=== PATIENT | female | born 1945 | race Caucasian/White ===

== ENCOUNTER 2017-06-11 16:33 | Emergency (ER) | payer MEDICARE, OTHER ==
[2017-06-11 19:16] VITALS: BP 128/77
[2017-06-11] MEDS ORDERED: oxyCODONE/Acetamin 5/325 MG* TAB PO ONE (19:17)
--- NOTE | 2017-06-11 20:11 | RAD ---
Indication: Shortness of breath, chest pain, RIGHT side rib pain on inspiration. Comparison: No relevant prior exams available on the [facility] PACS for comparison. Technique: Dual energy PA chest and two-view RIGHT rib series. Lateral skin marker noted indicating the site of clinical concern. Report: Nondisplaced fracture of the RIGHT fifth rib laterally. No additional RIGHT rib fractures evident. Negative for pleural effusion or pneumothorax. Clear lungs. Negative for cardiomegaly. Unremarkable central pulmonary vasculature. Mildly tortuous descending thoracic aorta. IMPRESSION: Nondisplaced RIGHT fifth rib fracture without associated pneumothorax.
--- NOTE | 2017-06-11 21:11 | ED ---
Magno Bishop Rebecca, scribed for Adam Rai MD on 06/11/17 at 1916 . Adult Trauma - HPI Summary HPI Summary: Pt is a 72 y/o F who presents to ED co R sided rib pain s/p mechanical fall. Last night at approximately 1500 she was trying to get into bed in a dark room and she believes to be closer to the bed than she was. When she tried to climb into bed, she was too far away and fell. Negative head trauma or LOC. Rib pain is currently moderate, ranked 6/10 and at its worst is 8/10. Took Ibuprofen at home for the pain which slightly improved pain. Sx aggravated by deep breaths, coughing, sneezing and movement. Denies any other pain including neck, back, abdominal, clavicular and hip pain. Denies SOB, vomiting, hematuria. Is not on blood thinners. - History of Current Complaint Chief Complaint: EDGeneral Stated Complaint: FALL/RT SIDE PAIN Hx Obtained From: Patient Mechanism of Injury: Fall Loss of Consciousness: no loss of consciousness Onset/Duration: Started Days Ago - Last night, Still Present Current Severity: Moderate Pain Intensity: 6 Pain Scale Used: 0-10 Numeric Location: Other - R rib pain Aggravating Factor(s): Movement, Deep Breaths, Cough, Other - Sneezing Alleviating Factor(s): OTC Meds - Ibuprofen Associated Signs & Symptoms: Positive: Negative. Negative: SOB, Hematuria, Abdominal Pain, Loss of Consciousness - Allergy/Home Medications Allergies/Adverse Reactions: Allergies Allergy/AdvReac Type Severity Reaction Status Date / Time No Known Allergies Allergy Verified 06/11/17 19:36 PMH/Surg Hx/FS Hx/Imm Hx Endocrine/Hematology History: Denies: Hx Anticoagulant Therapy, Hx Diabetes Cardiovascular History: Reports: Hx Hypercholesterolemia, Hx Hypertension Respiratory History: Denies: Hx Asthma, Hx Chronic Obstructive Pulmonary Disease (COPD) - Cancer History Hx Chemotherapy: No Hx Radiation Therapy: No Infectious Disease History: Denies: Traveled Outside the [place] in Last 30 Days - Family History Known Family History: Positive: Cardiac Disease, Respiratory Disease - CHF - Social History Occupation: Retired Lives: With Family Smoking Status (MU): Former Smoker Review of Systems Negative: Shortness Of Breath Negative: Abdominal Pain, Vomiting Negative: hematuria Positive: Other - R rib pain; NEGATIVE: neck, back, clavicular and hip pain All Other Systems Reviewed And Are Negative: Yes Physical Exam - Summary Physical Exam Summary: The patient is well-nourished in mild pain distress. The skin is warm and dry and skin color reflects adequate perfusion. HEENT: The head is normocephalic and atraumatic. The pupils are equal and reactive. The conjunctivae are clear and without drainage. Nares are patent and without drainage. Mouth reveals moist mucous membranes and the throat is without erythema and exudate. The external ears are intact. Neck is supple with full range of motion and non-tender. Ther eis no reproducible pain over the spins processes. Respiratory: Chest is non-tender. Lungs are clear to auscultation and breath sounds are symmetrical and equal. Cardiovascular: Hear is regular rate and rhythm. There is no murmur or rub auscultated. Pulses are symmetrical and equal. Abdomen: The abdomen is soft and non-tender. There are normal bowel sounds heard in all four quadrants and there is no organomegaly palpated. Musculoskeletal: There is no back pain noted. There is no tenderness over the thoracic or cervical spines. No CVA tenderness. No tenderness over the clavicles. No tenderness over the sternum. Marked tenderness on the anterior, inferior lateral ribs on the R. There is no crepitus, no deformity. Extremities are non-tender with full range of motion. There is good capillary refill. There is no calf tenderness elicited. Mild edema. She has strong pulses distally. Neurological: Patient is alert and oriented to person, place and time. The patient has symmetrical motor strength in all four extremities. Psychiatric: The patient has an appropriate affect and does not exhibit any anxiety or depression. Triage Information Reviewed: Yes Vital Signs On Initial Exam: Initial Vitals Temp Pulse Resp BP Pulse Ox 98.5 F 74 18 122/72 94 06/11/17 16:35 06/11/17 16:35 06/11/17 16:35 06/11/17 16:35 06/11/17 16:35 Vital Signs Reviewed: Yes Diagnostics - Vital Signs Vital Signs Temp Pulse Resp BP Pulse Ox 06/11/17 16:35 98.5 F 74 18 122/72 94 - Laboratory Lab Statement: Any lab studies that have been ordered have been reviewed, and results considered in the medical decision making process. - Radiology CXR with Ribs Xray Interpretation: Positive (See Comments) - Nondisplaced RIGHT fifth rib fracture without associated pneumothorax. ED physician reviewed radiology report and agrees. Radiology Interpretation Completed By: Radiologist Re-Evaluation - Re-Evaluation First Eval Re-Evaluation Time: 20:14 Comment: Discussed XR results with the pt. Adult Trauma Course/Dx - Course Assessment/Plan: Pt is a 72 y/o F who presents to ED co R sided rib pain s/p mechanical fall. Last night at approximately 1500 she was trying to get into bed in a dark room and she believes to be closer to the bed than she was. When she tried to climb into bed, she was too far away and fell. Negative head trauma or LOC. Rib pain is currently moderate, ranked 6/10 and at its worst is 8 /10. Took Ibuprofen at home for the pain which slightly improved pain. Sx aggravated by deep breaths, coughing, sneezing and movement. Denies any other pain including neck, back, abdominal, clavicular and hip pain. Denies SOB, vomiting, hematuria. Is not on blood thinners. CXR reveals Nondisplaced RIGHT fifth rib fracture without associated pneumothorax. In the ED course, pt was given percocet 5/325. Pt will be D/C to home with Dx of rib fracture, Rx for percocet 5/325 and a follow up with her PCP. She understands and agrees. Elevated BP noted and advised to f/u with PCP. - Diagnoses Differential Diagnosis/HQI/PQRI: Positive: Fracture, Other - pneumothorax Provider Diagnoses: Rib fracture Discharge - Discharge Plan Condition: Stable Disposition: HOME Prescriptions: oxyCODONE/Acetamin 5/325 MG* [Percocet 5/325 TAB*] 1 tab PO Q6H PRN #20 tab MDD 4 PRN Reason: Pain Patient Education Materials: Rib Fracture (ED) Referrals: Vernon Mendez MD [Primary Care Provider] - 3 Days The documentation as recorded by the Magno bales Rebecca accurately reflects the service I personally performed and the decisions made by me, Adam Rai MD.
== END 2017-06-11 20:26 | disposition home or self-care (01) ==
LOC: ED 16:33
DX: S22.31XA Fracture of one rib, right side, initial encounter for closed fracture (principal); W19.XXXA Unspecified fall, initial encounter; Y93.9 Activity, unspecified; Y92.9 Unspecified place or not applicable; Z87.891 Personal history of nicotine dependence
CPT/HCPCS: 99282; A9270-GY

== ENCOUNTER 2017-08-19 06:21 | Day surgery (SDC) | payer MEDICARE, OTHER ==
[~2017-08-19 06:21] MED LIST: Acetaminophen TAB* 325 MG PO PRN; Buffered Lidocaine 0.9% SYRIN* 5 ML/SYR SYRINGE INTRADERM ONE
[2017-08-19] MEDS ORDERED: fentaNYL* 50 MCG/ML 2 ML VIAL (100 MCG VIAL) ONE (07:27)
[2017-08-19] MEDS ORDERED: Midazolam* 1 MG/ML 5 ML VIAL (5 MG) ONE (07:27)
[2017-08-19 08:07] VITALS: BP 141/75
--- NOTE | 2017-08-19 11:02 | OP ---
OPERATIVE NOTE: DATE OF OPERATION: DATE OF : 41 SURGEON: Jayme Barrios M.D. PREOPERATIVE DIAGNOSIS: Cataract, right eye. POSTOPERATIVE DIAGNOSIS: Cataract, right eye. OPERATIVE PROCEDURE: Phacoemulsification, right eye with IOL. PROCEDURE: The patient was brought to the operating room after being given 1/2% Alcaine with epineph rine drops in the preoperative area. The eye was prepped and draped in the usual sterile fashion. S terile drape and eyelid speculum were placed. Again, topical 1/2% Alcaine with epinephrine was given . A paracentesis incision was made at the 9 o'clock position with the No.75 blade. Clear cornea inc ision 2.2 x 2.2-mm was created at the 12 o'clock position starting at the anterior limbus using the 2 .2-mm keratome. The anterior chamber was irrigated with 0.4 mL of 1% non-preservative intracameral l idocaine and filled with DisCoVisc. A capsulorrhexis was completed using the cystotome and the Utrat a forceps. Hydrodissection was performed with balanced salt solution. The lens nucleus was removed w ith the Phacoemulsification handpiece without incident. Cortex was removed with the irrigation-aspir ation handpiece. The capsular bag was re-inflated using DisCoVisc and an [id number] implant was inser karen with the shooter. The irrigation-aspiration handpiece was used to remove all residual DisCoVisc. The eye was refilled with balanced salt solution and the wound checked and found to be watertight. Topical Maxitrol drops were given. [id number]/[facility] #: [id number]
[2017-08-19] MEDS ORDERED: Lidocaine 2% EPI 1:200000 MPF* 20 ML VIAL ONE (12:51)
[2017-08-19] MEDS ORDERED: Cyclopentolate 1% OPTH.SOL* 2 ML BTL ONE (12:51)
[2017-08-19] MEDS ORDERED: Phenylephrine 2.5% OPTH.SOL* 2 ML BTL ONE (12:51)
[2017-08-19] MEDS ORDERED: Povidone Iodine 5% OPTH* 30 ML BTL ONE (12:51)
[2017-08-19] MEDS ORDERED: Neomycin/Polymy/Dex OPTH.SUSP* MAXITROL 0.1% 5 ML ONE (12:51)
[2017-08-19] MEDS ORDERED: acetaZOLAMIDE TAB* 250 MG ONE (12:51)
[2017-08-19] MEDS ORDERED: Lidocaine 1% MPF* 2 ML VIAL ONE (12:51)
[2017-08-19] MEDS ORDERED: Buffered Lidocaine 0.9% SYRIN* 5 ML/SYR SYRINGE ONE (12:52)
[2017-08-19] MEDS ORDERED: Proparacaine 0.5% OPHTH.SOL* 15 ML BTL ONE (12:52)
[2017-08-19] MEDS ORDERED: Ketorolac 0.5% OPHTH (NF) 0.5 % 5 ML BTL ONE (12:52)
== END 2017-08-19 08:08 | disposition home or self-care (01) ==
LOC: OREAST 06:21
PROVIDERS: ATTEND Specialist
DX: H25.11 Age-related nuclear cataract, right eye (principal); H53.461 Homonymous bilateral field defects, right side; Z87.891 Personal history of nicotine dependence; E78.2 Mixed hyperlipidemia; I10 Essential (primary) hypertension; M17.9 Osteoarthritis of knee, unspecified
CPT/HCPCS: A9270-GY; J2250; J3010; V2632

== ENCOUNTER → 2017-09-02 06:22 | Day surgery (SDC) | payer MEDICARE, OTHER ==
[~2017-09-02 06:22] MED LIST changes: -Acetaminophen TAB* 325 MG PO PRN; +Buffered Lidocaine 0.9% SYRIN* 5 ML/SYR SYRINGE ONE; +Cyclopentolate 1% OPTH.SOL* 2 ML BTL ONE; +Ketorolac 0.5% OPHTH (NF) 0.5 % 5 ML BTL ONE; +Lidocaine 1% MPF* 2 ML VIAL ONE; +Lidocaine 2% EPI 1:200000 MPF* 20 ML VIAL ONE; +Midazolam* 1 MG/ML 2 ML VIAL (2 MG) ONE; +Neomycin/Polymy/Dex OPTH.SUSP* MAXITROL 0.1% 5 ML ONE; +Phenylephrine 2.5% OPTH.SOL* 2 ML BTL ONE; +Povidone Iodine 5% OPTH* 30 ML BTL ONE; +Proparacaine 0.5% OPHTH.SOL* 15 ML BTL ONE; +acetaZOLAMIDE TAB* 250 MG ONE
[2017-09-02 08:04] VITALS: BP 144/63
--- NOTE | 2017-09-02 12:16 | OP ---
OPERATIVE NOTE: DATE OF OPERATION: 09/02/17 DATE OF : 41 SURGEON: Jayme Barrios MD PREOPERATIVE DIAGNOSIS: Cataract, left eye. POSTOPERATIVE DIAGNOSIS: Cataract, left eye. OPERATIVE PROCEDURE: Phacoemulsification, left eye with IOL. PROCEDURE: The patient was brought to the operating room after being given 1/2% Alcaine with epineph rine drops in the preoperative area. The eye was prepped and draped in the usual sterile fashion. S terile drape and eyelid speculum were placed. Again, topical 1/2% Alcaine with epinephrine was given . A paracentesis incision was made at the 3 o'clock position with the No.75 blade. Clear cornea inc ision 2.2 x 2.2-mm was created at the 6 o'clock position starting at the anterior limbus using the 2. 2-mm keratome. The anterior chamber was irrigated with 0.4 mL of 1% non-preservative intracameral li docaine and filled with DisCoVisc. A capsulorrhexis was completed using the cystotome and the Utrata forceps. Hydrodissection was performed with balanced salt solution. The lens nucleus was removed wi th the Phacoemulsification handpiece without incident. Cortex was removed with the irrigation-aspira tion handpiece. The capsular bag was re-inflated using DisCoVisc and an [id number] implant was insert ed with the shooter. The irrigation-aspiration handpiece was used to remove all residual DisCoVisc. The eye was refilled with balanced salt solution and the wound checked and found to be watertight. Topical Maxitrol drops were given. [id number]/[facility] #: [id number]
== END | disposition home or self-care (01) ==
LOC: OREAST 06:22
PROVIDERS: ATTEND Specialist
DX: H26.9 Unspecified cataract (principal); I10 Essential (primary) hypertension; E78.00 Pure hypercholesterolemia, unspecified; Z87.891 Personal history of nicotine dependence
CPT/HCPCS: A9270-GY; J2250; V2632

== ENCOUNTER 2021-09-23 09:28 | Inpatient (IN) ==
[2021-09-23 13:15] LABS: Urine Appearance Clear; Urine Bilirubin Negative (Negative); Urine Blood 1+ (Negative); Urine Color Straw; Urine Glucose Negative (Negative); Urine Ketones Negative (Negative); Urine Nitrite Negative (Negative); Urine Protein Negative (Negative); Urine Specific Gravity 1.006 (1.002-1.030); Urine Urobilinogen Negative (Negative)
[2021-09-23 13:26] LABS: Urine Amorphous Crystals Present (Absent); Urine Bacteria 1+ (Absent); Urine Red Blood Cell Trace(0-2/hpf) (Absent); Urine Squamous Epithelial Cell Present (Absent); Urine White Blood Cell Trace(0-5/hpf) (Absent)
[2021-09-23] MEDS ORDERED: Senna TAB 8.6 mg TAB PO PRN (16:33)
[2021-09-23] MEDS ORDERED: Calcium Carb (TUMS) 500 mg CHEW TAB PO PRN (16:41)
[2021-09-24] MEDS: Aspirin EC 81 mg TAB.EC (enteric coated) PO SCH (08:29)
[2021-09-25 06:32] LABS: Hematocrit 23 % (35-47); Hemoglobin 7.6 g/dL (12.0-16.0); Mean Corpuscular HGB Conc 33 g/dL (31-36); Mean Corpuscular Hemoglobin 30 pg (27-31); Mean Corpuscular Volume 91 fL (80-97); Mean Platelet Volume 7.4 fL (7.4-10.4); Platelet Count 284 10^3/uL (150-450); Red Cell Distribution Width 15 % (10-15); White Blood Count 12.2 10^3/uL (3.5-10.8)
[2021-09-25 06:35] LABS: ABS Basophils 0.1 10^3/ul (0-0.2); ABS Eosinophils 0.3 10^3/ul (0-0.6); ABS Lymphocytes 1.5 10^3/ul (1.0-4.8); ABS Monocytes 0.4 10^3/ul (0-0.8); ABS Neutrophils 9.9 10^3/ul (1.5-7.7); Eosinophil % 2.2 %; Lymphocyte % 12.7 %; Nucleated Red Blood Cells % 0.1
[2021-09-25 06:59] LABS: Albumin 2.4 g/dL (3.2-5.2); Albumin/Globulin Ratio 0.8 (1-3); Calcium 8.1 mg/dL (8.6-10.3); Globulin 2.9 g/dL (2-4); Potassium 3.4 mmol/L (3.5-5.0); Total Bilirubin 0.3 mg/dL (0.2-1.0); Total Protein 5.3 g/dL (6.4-8.9); eGFR CKD-EPI 91.8 (>60)
[2021-09-25] MEDS: Aspirin EC 81 mg TAB.EC (enteric coated) PO SCH (08:46)
[2021-09-25 10:40] LABS: Magnesium 1.2 mg/dL (1.9-2.7)
[2021-09-26] MEDS: Potassium Chlor 20 meq TAB.ER PO SCH (08:40)
[2021-09-26] MEDS: Aspirin EC 81 mg TAB.EC (enteric coated) PO SCH (08:40)
[2021-09-27 07:07] LABS: Hematocrit 23 % (35-47); Hemoglobin 7.8 g/dL (12.0-16.0); Mean Corpuscular HGB Conc 34 g/dL (31-36); Mean Corpuscular Hemoglobin 31 pg (27-31); Mean Corpuscular Volume 92 fL (80-97); Mean Platelet Volume 7.2 fL (7.4-10.4); Platelet Count 301 10^3/uL (150-450); Red Blood Count 2.54 10^6 /uL (3.70-4.87); Red Cell Distribution Width 15 % (10-15); White Blood Count 10.2 10^3/uL (3.5-10.8)
[2021-09-27 08:10] LABS: ABS Basophils 0.1 10^3/ul (0-0.2); ABS Eosinophils 0.3 10^3/ul (0-0.6); ABS Lymphocytes 1.6 10^3/ul (1.0-4.8); ABS Monocytes 0.4 10^3/ul (0-0.8); ABS Neutrophils 7.7 10^3/ul (1.5-7.7); Eosinophil % 3.3 %; Lymphocyte % 15.7 %; Polychromasia 2+
[2021-09-27] MEDS: Potassium Chlor 20 meq TAB.ER PO SCH (08:40)
[2021-09-27] MEDS: Aspirin EC 81 mg TAB.EC (enteric coated) PO SCH (08:41)
[2021-09-27 11:03] LABS: Calcium 8.4 mg/dL (8.6-10.3); Magnesium 1.2 mg/dL (1.9-2.7); Potassium 4.2 mmol/L (3.5-5.0); eGFR CKD-EPI 78.9 (>60)
[2021-09-27] MEDS: Magnesium Chloride EC 64 mgTAB PO SCH (13:02)
[2021-09-28 06:18] LABS: Calcium 8.6 mg/dL (8.6-10.3); Magnesium 1.4 mg/dL (1.9-2.7); Potassium 3.9 mmol/L (3.5-5.0); eGFR CKD-EPI 88.5 (>60)
[2021-09-28] MEDS: Magnesium Chloride EC 64 mgTAB PO SCH (08:06)
[2021-09-28] MEDS: Aspirin EC 81 mg TAB.EC (enteric coated) PO SCH (08:06)
[2021-09-29 08:33] LABS: Magnesium 1.4 mg/dL (1.9-2.7); Potassium 3.9 mmol/L (3.5-5.0); eGFR CKD-EPI 76.5 (>60)
[2021-09-29] MEDS: Magnesium Chloride EC 64 mgTAB PO SCH (09:32)
[2021-09-29] MEDS: Aspirin EC 81 mg TAB.EC (enteric coated) PO SCH (09:32)
[2021-09-29] MEDS ORDERED: ANALGESIC TOPICAL PRN (09:35)
[2021-09-30 06:44] LABS: Calcium 8.9 mg/dL (8.6-10.3); Magnesium 1.5 mg/dL (1.9-2.7); Potassium 3.9 mmol/L (3.5-5.0); eGFR CKD-EPI 78.9 (>60)
[2021-09-30] MEDS: Aspirin EC 81 mg TAB.EC (enteric coated) PO SCH (09:24)
[2021-09-30] MEDS: Magnesium Chloride EC 64 mgTAB PO SCH (09:24)
[2021-10-01] MEDS: Aspirin EC 81 mg TAB.EC (enteric coated) PO SCH (10:05)
[2021-10-01] MEDS: Magnesium Chloride EC 64 mgTAB PO SCH (10:05)
[2021-10-02 07:00] LABS: ABS Basophils 0.1 10^3/ul (0-0.2); ABS Eosinophils 0.3 10^3/ul (0-0.6); ABS Lymphocytes 1.2 10^3/ul (1.0-4.8); ABS Monocytes 0.5 10^3/ul (0-0.8); ABS Neutrophils 6.4 10^3/ul (1.5-7.7); Eosinophil % 4.1 %; Hematocrit 23 % (35-47); Hemoglobin 7.8 g/dL (12.0-16.0); Lymphocyte % 14.1 %; Mean Corpuscular HGB Conc 34 g/dL (31-36); Mean Corpuscular Hemoglobin 30 pg (27-31); Mean Corpuscular Volume 90 fL (80-97); Mean Platelet Volume 6.7 fL (7.4-10.4); Nucleated Red Blood Cells % 0.1; Platelet Count 296 10^3/uL (150-450); Red Blood Count 2.56 10^6 /uL (3.70-4.87); Red Cell Distribution Width 16 % (10-15); White Blood Count 8.5 10^3/uL (3.5-10.8)
[2021-10-02 07:10] LABS: Albumin 2.8 g/dL (3.2-5.2); Albumin/Globulin Ratio 0.9 (1-3); Calcium 9.2 mg/dL (8.6-10.3); Globulin 3.2 g/dL (2-4); Magnesium 1.5 mg/dL (1.9-2.7); Potassium 3.9 mmol/L (3.5-5.0); Total Bilirubin 0.3 mg/dL (0.2-1.0); eGFR CKD-EPI 76.5 (>60)
[2021-10-02] MEDS: Magnesium Chloride EC 64 mgTAB PO SCH (09:20)
[2021-10-02] MEDS: Aspirin EC 81 mg TAB.EC (enteric coated) PO SCH (09:21)
[2021-10-03] MEDS: Magnesium Chloride EC 64 mgTAB PO SCH (08:57)
[2021-10-03] MEDS: Aspirin EC 81 mg TAB.EC (enteric coated) PO SCH (08:57)
[2021-10-04] MEDS: Magnesium Chloride EC 64 mgTAB PO SCH (10:08)
[2021-10-04] MEDS: Aspirin EC 81 mg TAB.EC (enteric coated) PO SCH (10:08)
[2021-10-05] MEDS: Aspirin EC 81 mg TAB.EC (enteric coated) PO SCH (09:07)
[2021-10-05] MEDS: Magnesium Chloride EC 64 mgTAB PO SCH (09:08)
[2021-10-06] MEDS: Aspirin EC 81 mg TAB.EC (enteric coated) PO SCH (08:39)
[2021-10-06] MEDS: Magnesium Chloride EC 64 mgTAB PO SCH (08:40)
[2021-10-07] MEDS: Aspirin EC 81 mg TAB.EC (enteric coated) PO SCH (09:04)
[2021-10-07] MEDS: Magnesium Chloride EC 64 mgTAB PO SCH (09:04)
[2021-10-08] MEDS: Aspirin EC 81 mg TAB.EC (enteric coated) PO SCH (09:50)
[2021-10-08] MEDS: Magnesium Chloride EC 64 mgTAB PO SCH (09:53)
[2021-10-09 06:24] LABS: ABS Basophils 0.1 10^3/ul (0-0.2); ABS Eosinophils 0.2 10^3/ul (0-0.6); ABS Lymphocytes 1.4 10^3/ul (1.0-4.8); ABS Monocytes 0.4 10^3/ul (0-0.8); ABS Neutrophils 6.4 10^3/ul (1.5-7.7); Eosinophil % 2.3 %; Hematocrit 24 % (35-47); Hemoglobin 8.1 g/dL (12.0-16.0); Mean Corpuscular HGB Conc 33 g/dL (31-36); Mean Corpuscular Hemoglobin 30 pg (27-31); Mean Corpuscular Volume 90 fL (80-97); Mean Platelet Volume 6.8 fL (7.4-10.4); Nucleated Red Blood Cells % 0.1; Platelet Count 425 10^3/uL (150-450); Red Cell Distribution Width 16 % (10-15); White Blood Count 8.5 10^3/uL (3.5-10.8)
[2021-10-09 06:57] LABS: Albumin 3.1 g/dL (3.2-5.2); Albumin/Globulin Ratio 0.9 (1-3); Calcium 9.3 mg/dL (8.6-10.3); Globulin 3.3 g/dL (2-4); Magnesium 1.5 mg/dL (1.9-2.7); Potassium 4.5 mmol/L (3.5-5.0); Total Bilirubin 0.3 mg/dL (0.2-1.0); Total Protein 6.4 g/dL (6.4-8.9); eGFR CKD-EPI 85.5 (>60)
[2021-10-09] MEDS: Magnesium Chloride EC 64 mgTAB PO SCH (07:42)
[2021-10-09] MEDS: Aspirin EC 81 mg TAB.EC (enteric coated) PO SCH (07:42)
[2021-10-10] MEDS: Aspirin EC 81 mg TAB.EC (enteric coated) PO SCH (10:02)
[2021-10-10] MEDS: Magnesium Chloride EC 64 mgTAB PO SCH (10:04)
[2021-10-11] MEDS: Aspirin EC 81 mg TAB.EC (enteric coated) PO SCH (09:40)
[2021-10-11] MEDS: Magnesium Chloride EC 64 mgTAB PO SCH (09:40)
[2021-10-12] MEDS: Magnesium Chloride EC 64 mgTAB PO SCH (09:21)
[2021-10-12] MEDS: Aspirin EC 81 mg TAB.EC (enteric coated) PO SCH (09:21)
[2021-10-13] MEDS: Aspirin EC 81 mg TAB.EC (enteric coated) PO SCH (08:51)
[2021-10-13] MEDS: Magnesium Chloride EC 64 mgTAB PO SCH (08:51)
[2021-10-14] MEDS: Aspirin EC 81 mg TAB.EC (enteric coated) PO SCH (08:23)
[2021-10-14] MEDS: Magnesium Chloride EC 64 mgTAB PO SCH (08:23)
[2021-10-15] MEDS: Aspirin EC 81 mg TAB.EC (enteric coated) PO SCH (10:11)
[2021-10-15] MEDS: Magnesium Chloride EC 64 mgTAB PO SCH (10:11)
[2021-10-16 06:41] LABS: ABS Basophils 0.1 10^3/ul (0-0.2); ABS Eosinophils 0.2 10^3/ul (0-0.6); ABS Lymphocytes 1.3 10^3/ul (1.0-4.8); ABS Monocytes 0.5 10^3/ul (0-0.8); ABS Neutrophils 7.7 10^3/ul (1.5-7.7); Eosinophil % 2.1 %; Hematocrit 27 % (35-47); Hemoglobin 9.1 g/dL (12.0-16.0); Lymphocyte % 13.7 %; Mean Corpuscular HGB Conc 34 g/dL (31-36); Mean Corpuscular Hemoglobin 30 pg (27-31); Mean Corpuscular Volume 89 fL (80-97); Mean Platelet Volume 7.1 fL (7.4-10.4); Platelet Count 451 10^3/uL (150-450); Red Blood Count 3.05 10^6 /uL (3.70-4.87); Red Cell Distribution Width 16 % (10-15); White Blood Count 9.8 10^3/uL (3.5-10.8)
[2021-10-16 07:07] LABS: Albumin 3.3 g/dL (3.2-5.2); Calcium 9.3 mg/dL (8.6-10.3); Globulin 3.3 g/dL (2-4); Magnesium 1.6 mg/dL (1.9-2.7); Potassium 3.9 mmol/L (3.5-5.0); Total Bilirubin 0.4 mg/dL (0.2-1.0); Total Protein 6.6 g/dL (6.4-8.9)
[2021-10-16] MEDS: Magnesium Chloride EC 64 mgTAB PO SCH (08:02)
[2021-10-16] MEDS: Aspirin EC 81 mg TAB.EC (enteric coated) PO SCH (08:02)
[2021-10-17] MEDS: Aspirin EC 81 mg TAB.EC (enteric coated) PO SCH (09:56)
[2021-10-17] MEDS: Magnesium Chloride EC 64 mgTAB PO SCH (09:56)
[2021-10-18] MEDS: Aspirin EC 81 mg TAB.EC (enteric coated) PO SCH (09:47)
[2021-10-18] MEDS: Magnesium Chloride EC 64 mgTAB PO SCH (09:47)
[2021-10-19] MEDS: Aspirin EC 81 mg TAB.EC (enteric coated) PO SCH (09:03)
[2021-10-19] MEDS: Magnesium Chloride EC 64 mgTAB PO SCH (09:04)
[2021-10-20] MEDS: Aspirin EC 81 mg TAB.EC (enteric coated) PO SCH (08:40)
[2021-10-20] MEDS: Magnesium Chloride EC 64 mgTAB PO SCH (08:40)
[2021-10-21] MEDS: Aspirin EC 81 mg TAB.EC (enteric coated) PO SCH (09:24)
[2021-10-21] MEDS: Magnesium Chloride EC 64 mgTAB PO SCH (09:25)
[2021-10-22 06:49] VITALS: BP 146/78
[2021-10-22] MEDS: Aspirin EC 81 mg TAB.EC (enteric coated) PO SCH (08:56)
[2021-10-22] MEDS: Magnesium Chloride EC 64 mgTAB PO SCH (08:57)
== END 2021-10-22 13:25 | disposition home health service (06) | DRG 949 ==
LOC: PMRU 12:16
PROVIDERS: ADMIT Physical Medicine & Rehabilitation; ATTEND Physical Medicine & Rehabilitation

== ENCOUNTER 2023-02-05 05:58 | Inpatient (IN) ==
[~2023-02-05 05:58] MED LIST changes: -Buffered Lidocaine 0.9% SYRIN* 5 ML/SYR SYRINGE INTRADERM ONE; -Buffered Lidocaine 0.9% SYRIN* 5 ML/SYR SYRINGE ONE; -Cyclopentolate 1% OPTH.SOL* 2 ML BTL ONE; -Ketorolac 0.5% OPHTH (NF) 0.5 % 5 ML BTL ONE; -Lidocaine 1% MPF* 2 ML VIAL ONE; -Lidocaine 2% EPI 1:200000 MPF* 20 ML VIAL ONE; -Midazolam* 1 MG/ML 2 ML VIAL (2 MG) ONE; -Neomycin/Polymy/Dex OPTH.SUSP* MAXITROL 0.1% 5 ML ONE; -Phenylephrine 2.5% OPTH.SOL* 2 ML BTL ONE; -Povidone Iodine 5% OPTH* 30 ML BTL ONE; -Proparacaine 0.5% OPHTH.SOL* 15 ML BTL ONE; +Tranexamic Acid 1,000 MG/10 ML 1,000 MG in NS 0.9% 50 ML 50 ML IV SCH; -acetaZOLAMIDE TAB* 250 MG ONE
[2023-02-05] MEDS ORDERED: Dexamethasone IV 4 MG/ML VIAL 1 ml VIAL IV SLOW PU ONE (06:00)
[2023-02-05] MEDS ORDERED: Famotidine IV 10 MG/ML 2 ml VIAL (20 mg) IV ONE (06:00)
[2023-02-05] MEDS ORDERED: Buffered Lidocaine 1% SYRIN 1 ml INTRADERM ONE (06:00)
[2023-02-05] MEDS ORDERED: Lactated Ringers 1000 ml BAG 1,000 ML IV SCH (06:00)
[2023-02-05] MEDS ORDERED: Midazolam 2 mg/2 ml VIAL 1 mg/ml 2 ml VIAL (2 mg) ONE (06:24)
[2023-02-05] MEDS ORDERED: fentaNYL 100 mcg/2 ml 50 MCG/ML VIAL ONE ×2 (06:24→08:47)
[2023-02-05] MEDS ORDERED: Propofol 0 MG/0 ML BTL ONE (06:25)
[2023-02-05] MEDS ORDERED: Phenylephrine IV 10 MG/ML 1 ml VIAL ONE (06:25)
[2023-02-05] MEDS ORDERED: Dexamethasone IV 4 MG/ML VIAL 1 ml VIAL ONE (06:32)
[2023-02-05] MEDS ORDERED: Famotidine IV 10 MG/ML 2 ml VIAL (20 mg) ONE (06:32)
[2023-02-05] MEDS ORDERED: ceFAZolin 2 GM PREMIX 2 GM/50 ML BAG ONE (06:32)
[2023-02-05 06:54] LABS: Rapid COVID-19 Molecular Undetected (Undetected)
[2023-02-05] MEDS ORDERED: ROPIVACAINE 5 MG/ML 30 ML BTL (0.5%) ONE (07:09)
[2023-02-05] MEDS ORDERED: Rocuronium 50 mg VIAL 10 mg/ml 5 ml VIAL (50 mg) ONE (07:32)
[2023-02-05] MEDS ORDERED: Propofol 10 MG/ML 20 ML BTL ONE (07:33)
[2023-02-05] MEDS ORDERED: Naloxone 0.4 mg VIAL 0.4 mg/ml 1 ml VIAL IV PRN (08:12)
[2023-02-05] MEDS ORDERED: fentaNYL 100 mcg/2 ml 50 MCG/ML VIAL IV PRN (08:12)
[2023-02-05] MEDS ORDERED: Ondansetron 4 mg VIAL 2 MG/ML 2 ml VIAL ONE (08:34)
[2023-02-05] MEDS ORDERED: Acetaminophen IV 1 GM/100ML 1,000 MG/100 ML BAG IV ONE ×2 (08:34→13:39)
[2023-02-05] MEDS ORDERED: HYDROmorphone 0.5 MG/0.5 ML SYRINGE ONE (09:45)
[2023-02-05] MEDS ORDERED: Ondansetron 4 mg VIAL 2 MG/ML 2 ml VIAL IV PRN (10:21)
[2023-02-05] MEDS ORDERED: Lactulose 30 ml UDC PO PRN (10:21)
[2023-02-05] MEDS ORDERED: Magnesium Hydroxide LIQ 30 ML UDC PO PRN (10:21)
[2023-02-05] MEDS ORDERED: Morphine 2 MG/ML SYRINGE IV PRN (10:21)
[2023-02-05] MEDS ORDERED: Ondansetron ODT 4 mg TAB 4 MG TAB PO PRN (10:21)
[2023-02-05] MEDS: Lactated Ringers 1000 ml BAG 1,000 ML IV SCH ×3 (13:02→17:53)
[2023-02-05] MEDS ORDERED: Naloxone 0.4 mg VIAL 0.4 mg/ml 1 ml VIAL ONE (13:24)
[2023-02-05] MEDS ORDERED: Lactated Ringers 1000 ml BAG 1,000 ML IV ONE ×2 (13:43→15:17)
[2023-02-05] MEDS ORDERED: Sulfur Hexaflouride MICROSPHR 25 MG VIAL ONE (16:33)
[2023-02-05 16:35] LABS: ABS Lymphocytes 0.7 10^3/uL (1.0-4.8); ABS Monocytes 0.9 10^3/uL (0.0-0.9); ABS Neutrophils 16.2 10^3/uL (1.5-7.6); ABS Nucleated RBC 0.01 10^3/ul; Hematocrit 30.6 % (35-45); Hemoglobin 10.1 g/dL (11.5-14.3); Lymphocyte % 3.7 %; Mean Corpuscular Hemoglobin 32.1 pg (27-33); Mean Corpuscular Hgb Conc 33.2 g/dL (31-36); Mean Corpuscular Volume 96.8 fL (80-97); Mean Platelet Volume 7.8 fL (7.5-11.2); Platelet Count 191 10^3/uL (150-450); Red Blood Count 3.16 10^6/uL (3.63-4.92); Red Cell Distribution Width 14.4 % (12-17); White Blood Count 17.8 10^3/uL (3.8-11.8)
[2023-02-05] MEDS: ceFAZolin 1 GM ADVAN 1 GM in NS 0.9% 50 ML 50 ML IVPB SCH (16:53)
[2023-02-05 17:10] LABS: Albumin 3.7 g/dL (3.2-5.2); Albumin/Globulin Ratio 1.6 (1-3); Creatinine, Serum 1.08 mg/dL (0.51-0.95); Globulin 2.3 g/dL (2-4); Magnesium 1.5 mg/dL (1.9-2.7); Phosphorus 4.7 mg/dL (2.5-5.0); Potassium 4.7 mmol/L (3.5-5.0); Total Bilirubin 0.4 mg/dL (0.2-1.0); eGFR CKD-EPI 51.9 (>60)
[2023-02-05] MEDS ORDERED: Magnesium Sulfate 2 gm BAG 2 GM/50 ML BAG IVPB ONE (17:27)
[2023-02-05] MEDS: Magnesium Hydroxide LIQ 30 ML UDC PO SCH (19:54)
[2023-02-05 22:52] LABS: Urine Appearance Clear; Urine Bilirubin Negative (Negative); Urine Blood 1+ (Negative); Urine Color Yellow; Urine Glucose Negative (Negative); Urine Ketones Negative (Negative); Urine Nitrite Negative (Negative); Urine Protein Negative (Negative); Urine Specific Gravity 1.017 (1.002-1.030); Urine Urobilinogen Negative (Negative)
[2023-02-05 23:07] LABS: Urine Bacteria Absent (Absent); Urine Red Blood Cell Trace(0-2/hpf) (Absent); Urine Squamous Epithelial Cell Present (Absent); Urine White Blood Cell Trace(0-5/hpf) (Absent)
[2023-02-06] MEDS: ceFAZolin 1 GM ADVAN 1 GM in NS 0.9% 50 ML 50 ML IVPB SCH ×2 (00:20→09:05)
[2023-02-06] MEDS: Lactated Ringers 1000 ml BAG 1,000 ML IV SCH (05:30)
[2023-02-06 05:38] LABS: ABS Lymphocytes 1.1 10^3/uL (1.0-4.8); ABS Neutrophils 10.4 10^3/uL (1.5-7.6); ABS Nucleated RBC 0.03 10^3/ul; Hematocrit 23.7 % (35-45); Hemoglobin 7.9 g/dL (11.5-14.3); Lymphocyte % 8.6 %; Mean Corpuscular Hemoglobin 31.8 pg (27-33); Mean Corpuscular Hgb Conc 33.4 g/dL (31-36); Mean Corpuscular Volume 95.1 fL (80-97); Nucleated Red Blood Cells % 0.2 /100 WBC (0.0-0.4); Platelet Count 162 10^3/uL (150-450); Red Blood Count 2.49 10^6/uL (3.63-4.92); Red Cell Distribution Width 14.3 % (12-17); White Blood Count 12.5 10^3/uL (3.8-11.8)
[2023-02-06 06:08] LABS: Calcium 8.6 mg/dL (8.6-10.3); Magnesium 1.9 mg/dL (1.9-2.7)
[2023-02-06 06:16] LABS: Potassium 4.9 mmol/L (3.5-5.0)
[2023-02-06] MEDS: Acetaminophen IV 1 GM/100ML 1,000 MG/100 ML BAG IV PRN ×2 (08:18→16:58)
[2023-02-06] MEDS: Magnesium Hydroxide LIQ 30 ML UDC PO SCH ×2 (08:43→21:17)
[2023-02-06] MEDS: Cholecalciferol (VIT D3) 1,000 unit TAB PO SCH (09:07)
[2023-02-06] MEDS: Vitamin THERAPEUTIC TAB PO SCH (09:07)
[2023-02-06] MEDS: Enoxaparin 40 MG/0.4 ML SYR SUBCUT SCH (09:09)
[2023-02-06] MEDS: Magnesium Chloride EC 64 mgTAB PO SCH (09:17)
[2023-02-06 17:10] LABS: Hematocrit 23.1 % (35-45); Hemoglobin 7.7 g/dL (11.5-14.3)
[2023-02-07] MEDS: Acetaminophen IV 1 GM/100ML 1,000 MG/100 ML BAG IV PRN ×2 (02:13→20:56)
[2023-02-07 07:41] LABS: Calcium 8.5 mg/dL (8.6-10.3); Creatinine, Serum 0.99 mg/dL (0.51-0.95); Magnesium 1.8 mg/dL (1.9-2.7); Potassium 4.5 mmol/L (3.5-5.0); eGFR CKD-EPI 57.6 (>60)
[2023-02-07] MEDS: Magnesium Hydroxide LIQ 30 ML UDC PO SCH ×2 (09:18→22:05)
[2023-02-07] MEDS: Cholecalciferol (VIT D3) 1,000 unit TAB PO SCH (09:19)
[2023-02-07] MEDS: Vitamin THERAPEUTIC TAB PO SCH (09:19)
[2023-02-07] MEDS: Enoxaparin 40 MG/0.4 ML SYR SUBCUT SCH (09:19)
[2023-02-07] MEDS: Magnesium Chloride EC 64 mgTAB PO SCH (09:26)
[2023-02-07 12:59] LABS: ABS Eosinophils 0.1 10^3/uL (0.0-0.5); ABS Lymphocytes 1.4 10^3/uL (1.0-4.8); ABS Monocytes 0.6 10^3/uL (0.0-0.9); ABS Neutrophils 10.6 10^3/uL (1.5-7.6); Eosinophil % 0.5 %; Hematocrit 20.8 % (35-45); Hemoglobin 6.9 g/dL (11.5-14.3); Lymphocyte % 10.9 %; Mean Corpuscular Volume 96.8 fL (80-97); Mean Platelet Volume 7.8 fL (7.5-11.2); Platelet Count 137 10^3/uL (150-450); Red Blood Count 2.15 10^6/uL (3.63-4.92); Red Cell Distribution Width 14.3 % (12-17); White Blood Count 12.8 10^3/uL (3.8-11.8)
[2023-02-08 07:03] LABS: Hematocrit 24.1 % (35-45); Hemoglobin 8.3 g/dL (11.5-14.3); Mean Corpuscular Hgb Conc 34.6 g/dL (31-36); Mean Corpuscular Volume 92.7 fL (80-97); Mean Platelet Volume 7.5 fL (7.5-11.2); Platelet Count 139 10^3/uL (150-450); White Blood Count 9.5 10^3/uL (3.8-11.8)
[2023-02-08] MEDS ORDERED: Magnesium Sulfate IV 1GM/100ML 1 GM/100 ML BAG IV ONE (07:31)
[2023-02-08 07:44] LABS: Calcium 8.3 mg/dL (8.6-10.3); Creatinine, Serum 0.91 mg/dL (0.51-0.95); Magnesium 1.8 mg/dL (1.9-2.7); Potassium 4.2 mmol/L (3.5-5.0); eGFR CKD-EPI 63.8 (>60)
[2023-02-08] MEDS: Vitamin THERAPEUTIC TAB PO SCH (07:58)
[2023-02-08] MEDS: Cholecalciferol (VIT D3) 1,000 unit TAB PO SCH (07:58)
[2023-02-08] MEDS: Magnesium Chloride EC 64 mgTAB PO SCH (07:59)
[2023-02-08] MEDS: Magnesium Hydroxide LIQ 30 ML UDC PO SCH ×2 (08:14→22:08)
[2023-02-08 08:52] LABS: ABS Eosinophils 0.1 10^3/uL (0.0-0.5); ABS Lymphocytes 1.6 10^3/uL (1.0-4.8); ABS Monocytes 0.5 10^3/uL (0.0-0.9); ABS Neutrophils 7.1 10^3/uL (1.5-7.6); ABS Nucleated RBC 0.02 10^3/ul; Eosinophil % 1.5 %; Lymphocyte % 17.2 %; Nucleated Red Blood Cells % 0.2 /100 WBC (0.0-0.4)
[2023-02-09] MEDS: Vitamin THERAPEUTIC TAB PO SCH (07:35)
[2023-02-09] MEDS: Cholecalciferol (VIT D3) 1,000 unit TAB PO SCH (07:36)
[2023-02-09] MEDS: Magnesium Hydroxide LIQ 30 ML UDC PO SCH ×2 (08:31→23:08)
[2023-02-09] MEDS ORDERED: Magnesium Sulfate 2 gm BAG 2 GM/50 ML BAG IVPB ONE (08:56)
[2023-02-09] MEDS: Magnesium Chloride EC 64 mgTAB PO SCH (09:51)
[2023-02-09] MEDS ORDERED: Calcium Gluconate 2 GM in NS 0.9% 100 ml BAG 100 ML IV ONE (11:00)
[2023-02-09 11:05] LABS: Hematocrit 25.3 % (35-45); Hemoglobin 8.6 g/dL (11.5-14.3); Mean Platelet Volume 7.5 fL (7.5-11.2); Platelet Count 190 10^3/uL (150-450)
[2023-02-09 12:07] LABS: Calcium 8.6 mg/dL (8.6-10.3); Creatinine, Serum 1.01 mg/dL (0.51-0.95); Potassium 4.4 mmol/L (3.5-5.0); eGFR CKD-EPI 56.3 (>60)
[2023-02-10] MEDS: Magnesium Chloride EC 64 mgTAB PO SCH (07:34)
[2023-02-10] MEDS: Cholecalciferol (VIT D3) 1,000 unit TAB PO SCH (07:34)
[2023-02-10] MEDS: Vitamin THERAPEUTIC TAB PO SCH (07:35)
[2023-02-10 08:55] LABS: Hematocrit 26.1 % (35-45); Hemoglobin 8.8 g/dL (11.5-14.3); Mean Platelet Volume 7.3 fL (7.5-11.2); Platelet Count 228 10^3/uL (150-450)
[2023-02-10] MEDS: Magnesium Hydroxide LIQ 30 ML UDC PO SCH ×2 (09:04→21:47)
[2023-02-10 09:34] LABS: Calcium 8.8 mg/dL (8.6-10.3); Creatinine, Serum 0.94 mg/dL (0.51-0.95); Magnesium 1.8 mg/dL (1.9-2.7); Potassium 4.6 mmol/L (3.5-5.0); eGFR CKD-EPI 61.3 (>60)
[2023-02-11] MEDS: Magnesium Hydroxide LIQ 30 ML UDC PO SCH (09:08)
[2023-02-11] MEDS: Magnesium Chloride EC 64 mgTAB PO SCH (09:09)
[2023-02-11] MEDS: Vitamin THERAPEUTIC TAB PO SCH (09:09)
[2023-02-11] MEDS: Cholecalciferol (VIT D3) 1,000 unit TAB PO SCH (09:09)
[2023-02-11 10:27] VITALS: BP 107/60
== END 2023-02-11 11:00 | disposition home or self-care (01) | DRG 470 ==
LOC: OR 05:58 → SSU 05:58 → ICU 16:08 → SSU 02-06 16:24
PROVIDERS: ADMIT Orthopaedic Surgery Adult Reconstructive Orthopaedic Surgery; ATTEND Orthopaedic Surgery Adult Reconstructive Orthopaedic Surgery